=== PATIENT | female | born 1950 | race Caucasian/White ===

== ENCOUNTER 2022-04-26 14:47 | Outpatient (CLI) | payer MEDICARE, BC, SELFPAY ==
[2022-04-26 17:20] LABS: C Reactive Protein* 0.9 mg/dL (0.5-1.0)
[2022-04-26 19:17] LABS: Erythrocyte SedimentationRate* 12 mm/hr (2-20)
== END 2022-04-26 14:48 | disposition home or self-care (01) ==
PROVIDERS: PCP Family Medicine; Visit Provider Physician Assistant Surgical
DX: M25.562 Pain in left knee (principal); M25.561 Pain in right knee; Z96.652 Presence of left artificial knee joint; M17.11 Unilateral primary osteoarthritis, right knee
CPT/HCPCS: 83520; 85651; 86140

== ENCOUNTER 2022-05-19 09:47 | Outpatient (CLI) | payer MEDICARE, BC, SELFPAY ==
--- NOTE | 2022-05-19 12:00 | CRLHL7_ITS ---
For Patients: As a result of the Century Cures Act, medical imaging exams and procedure reports are released immediately into your electronic medical record. You may view this report before your referring provider. If you have questions, please contact your health care provider. HISTORY: 71-year-old female. Left knee arthroplasty in August 16 at 2018. Left knee pain. TECHNIQUE: 27.0 millicuries of [id number] was injected intravenously. Three phase images of the knees were obtained. FINDINGS: The blood flow and blood pool in demonstrate mild hyperemia over the right knee but no significant hyperemia in the left knee. The delayed images demonstrate a left knee arthroplasty. There is abnormally increased uptake adjacent to the left knee prosthetic components. These findings are suspicious for loosening. Uptake in the right knee predominates in the medial compartment and has an appearance consistent with degenerative change. IMPRESSION: 1. There are findings suspicious for loosening of the left knee prosthesis. 2. There are findings consistent with arthritic changes in the right knee. Dictated by Topher Avila MD @ 05/19/2022 2:05:56 PM (Electronically Signed)
== END 2022-05-19 09:48 | disposition home or self-care (01) ==
PROVIDERS: PCP Family Medicine; Visit Provider Physician Assistant Surgical
DX: Z96.652 Presence of left artificial knee joint (principal); T84.033A Mechanical loosening of internal left knee prosthetic joint, initial encounter; M25.562 Pain in left knee
CPT/HCPCS: 78315; A9503

== ENCOUNTER 2022-11-25 14:30 | Outpatient (RCR) | payer MEDICARE, BC, SELFPAY ==
--- NOTE | 2022-08-23 14:02 | PT.OPEX ---
[facility] PT [facility] Eval Start: 08/23/22 13:01 Freq: Status: Active Protocol: Document 08/23/22 13:02 [facility] (Rec: 08/23/22 13:10 [facility] [id number]) E-signed By Chad Best, PT Physical Therapy Outpatient Evaluation Insurance Information Insurance Name Medicare B Medical Diagnosis Loose left total knee arthroplasty Presence of left artificial knee joint Z96.652 Treating Diagnosis Left knee pain M25.562 Difficulty walking R26.2 Muscle weakness M62.81 Knee stiffness M25.[address] Alex Mcgraw Subjective Subjective Pt. scheduled for left TKA revision on 09/01/22. Original TKA was 08/15/2017. Since then, her knee has never felt normal. She's had pain consistently ever since. She also has developed nerve injury, per patient, the symptoms of which are burning on the outside of left knee and up into thigh. PMH: HTN, metal implants, arthritis Pain Comments At worst, /10 (tears in eyes ) Date of Last Physician Visit 06/22/22 Current Work Status Retired Precautions Weight Bearing Status Weight Bear as Tolerated Objective Other/Pertinent Objective L knee: 0-0-120 deg Strength: L quad: 4-/5 painful knee flexion: 4+/5 Hip flexion: 4/5 Gait: antalgic w/ left limp, + Trendelenburg Palpation: TTP left lateral knee joint line, severe + knee pain with ankle pumps, QS and LAQs Functional Test Performed & Score Gait: Antalgic gait, left limp , wide WERO, + Trendelenburg SLS: unable on left due to pain Assessment Assessment/Impression 72 year old female with 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 She has experienced ongoing left knee pain ever since and, apparently, has also developed nerve damage as a result. She is scheduled for a revision on 09/01/[address] Mcgraw. Patient had some familiarity with the TKA rehab process, but it was good to review HEP and rehab expectations since it has been five years. She has good family support and plans for d/c home after surgery, to receive outpatient PT at [facility]. Pt not sure if she still has her walker from her first surgery, but will check prior to sx. Primary Functional Limitations ambulation, sit to stand, stairs (descend worse than ascent) Plan of Care Rehabilitation Potential Good Rehabilitation Potential Comments chronic pain and limited activity leading up to surgery , however, patient is motivated and has good family support system Physical Therapy Goals Pre op goal: 1) Pt will be I with pre-op/ post-op HEP to optimize left knee strength/ROM before surgery 09/01/22 2) Pt verbalizes understanding of post-op recovery process/ needs GOALS MET Post op goals TBD by primary treating PT Coordination/Communication With Referral Source Treatment Plan/Direct Interventions Gait Training,Manual Therapy, Neuromuscular Re-ed,Self-Care/ Home Management,Therapeutic Exercises Direct Interventions Clarification post op TKA protocol Comments Frequency/Duration 2x/week for 6-8 weeks Patient Will Be Discharged From Therapy Completion of LTG(s), Independent w/HEP, Independently Progressing Evaluation Billing Untimed Code Treatment Minutes 25 Complexity Low Certification Information Initial Certification Date 08/23/22 Ending Certification Date 11/15/22 Provider Signature Shows Agreement With POC & Medical Necessity Physician Signature & Date Requested Please Sign/Date Here Physician Comment/Change : Physician NPI Number #
--- NOTE | 2022-11-10 16:45 | PT.OPDNX ---
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 Alex Mcgraw Subjective Subjective Pt. reports that her knee has been doing ok - last night her knee was hurting as she was going up hills on her walk, but better today. She has been using her cane for longer walks and hills. She is walking most days. Pain is better this morning. Slightly increased swelling. Doing her exercises daily. Thinks she will be getting right knee replaced in the near future. Pain Comments 3/10 Precautions Weight Bearing Status Weight Bear as Tolerated Home Exercise Home Exercise Comments Post op TKA protocol ex (daily ): Seated knee flexion stretch Lateral step up 4 Standing hip abduction Heel slides Mini squats Objective Other/Pertinent Objective L knee: 0-0-114 PROM with OP from therapist Strength: L quad: 3+/5 (not tested today) indep. SLR without quad lag increased hamstring and adductor muscle tightness Functional Test Performed & Score Gait: Mildly antalgic gait, wide WERO, + Trendelenburg SLS: unable on left due to pain (not tested today) Patient Instructed in Risks/Benefits Yes Therapeutic Exercise Therapeutic Exercise Minutes (minutes) 40 Therapeutic Exercise: To Restore -Reassessment of objective Functional Status measures -Review of progress and remaining impairments -Collaboration on further POC Pt educated in the following exercises to improve range of motion, tissue tolerance, and/ or strength with verbal/ tactile cues as necessary: Nu step seat height 10 x 6 min at level 4 Heel slides x 10 reps with strap OP Sitting SL ham curls 3 plates 1 x 20 reps, 5 plates DL 1 x 8 reps Mini squats x 12 reps Lateral step up L 4 X 12 reps , attempted on R but discontinued d/t pain DL leg press seat angle 4, 90 lbs x 15 reps Treatment Minutes Timed Code Treatment Minutes 40 Total Treatment Time 40 Billing Units Therapeutic Exercise Units 3 Assessment/Impression Assessment/Impression Pt presents to physical therapy 10 weeks s/p left TKA revision with improved knee flexion range of motion and only mildly antalgic gait. Swelling continues to decrease but remains moderate. Pt tolerated increased tissue loading well this visit without pain. Pt remains appropriate for skilled physical therapy services to address above deficits. Plan of Care Physical Therapy Goals 1. Pt. will be indep. with HEP for self maintenance in 8 weeks. Met 2. Pt. will be able to walk without a limp in 8 weeks. Progressing 3. Pt. will demonstrate improved quad and core strength in 8 weeks to functional level. Progressing 4. Pt. will demonstrate functional knee AROM to allow regular ADL's in 8 weeks. Progressing Daily Plan of Care Continue per POC Recertification Information Initial Certification Date 11/15/22 Recertification Start Date 11/10/22 Recertification Due Date 02/03/23 Reasons to Continue Skilled Therapy Patient is a 72-year-old female that presents 11 weeks s/p left TKA revision. Patient has shown improvement in physical therapy, demonstrating decreased pain, increased range of motion, increased strength, and increased tolerance to activity and load. Pt has shown improvement in knee flexion to 114 degrees and 0 degrees of extension. Patient continues to present with pain , swelling, decreased flexion ROM, decreased strength, and decreased tolerance to activity. Continues to have difficulty with climbing stairs, walking longer distances, and squatting. Patient would benefit from continued skilled PT services to address these issues and to maximize function. Rehabilitation Potential Good Provider Signature Shows Agreement With POC & Medical Necessity
== END 2022-11-25 15:04 | disposition home or self-care (01) ==
PROVIDERS: PCP Family Medicine; Visit Provider Orthopaedic Surgery
DX: T84.033D Mechanical loosening of internal left knee prosthetic joint, subsequent encounter (principal); Z96.652 Presence of left artificial knee joint; Z51.89 Encounter for other specified aftercare
CPT/HCPCS: 97016; 97110; 97112; 97116; 97140; 97161; 97162; 97164